=== PATIENT | female | born 1960 | race Caucasian/White ===

== ENCOUNTER 2018-06-27 14:03 | Emergency (ER) | payer BC ==
[2018-06-27 14:33] VITALS: BP 137/65
--- NOTE | 2018-06-27 15:59 | UC ---
Knee Pain HPI - HPI Summary HPI Summary: Pt c/o right knee pain that began after falling the day before ( 2018). Pt states that pain worsens with climbing stairs and prolonged standing. Pain is mostly medial at joint space. - History of Current Complaint Chief Complaint: UCLowerExtremity Stated Complaint: RIGHT KNEE INJURY Hx Obtained From: Patient ?: No Onset/Duration: Sudden Onset, Lasting Weeks, Still Present Severity Initially: Moderate Severity Currently: Moderate Pain Intensity: 7 Character: Sharp, Dull, Aching Aggravating Factor(s): Weight Bearing, Prolonged Standing, Stairs Alleviating Factor(s): Rest, Position, Cold Associated Signs And Symptoms: Positive: Swelling Able to Bear Weight: Yes - Risk Factors Septic Arthritis Risk Factor: Negative Gout Risk Factor: Age ^ 38 - Allergies/Home Medications Allergies/Adverse Reactions: Allergies Allergy/AdvReac Type Severity Reaction Status Date / Time No Known Allergies Allergy Verified 06/27/18 14:33 Home Medications: Home Medications Diclofenac Sodium EC TAB* [Voltaren EC TAB*] 25 mg PO TID PRN 06/27/18 [History Confirmed 06/27/18] Lisinopril TAB* [Prinivil TAB*] 5 mg PO DAILY 06/27/18 [History Confirmed ] PMH/Surg Hx/FS Hx/Imm Hx Previously Healthy: Yes Cardiovascular History: Hypertension - Surgical History Surgical History: None - Family History Known Family History: Positive: Cardiac Disease - Social History Occupation: Employed Full-time Lives: With Family Alcohol Use: None Substance Use Type: None Smoking Status (MU): Never Smoked Tobacco Have You Smoked in the Last Year: No Review of Systems All Other Systems Reviewed And Are Negative: Yes Constitutional: Positive: Negative Skin: Positive: Negative Eyes: Positive: Negative ENT: Positive: Negative Respiratory: Positive: Negative Cardiovascular: Positive: Negative Gastrointestinal: Positive: Negative Genitourinary: Positive: Negative Motor: Positive: Negative Neurovascular: Positive: Negative Musculoskeletal: Positive: Arthralgia - righ tknee, Myalgia Neurological: Positive: Negative Psychological: Positive: Negative Is Patient Immunocompromised?: No Physical Exam Triage Information Reviewed: Yes Appearance: Well-Appearing Vital Signs: Initial Vital Signs Temp 97.6 F 06/27/18 14:29 Pulse 77 06/27/18 14:29 Resp 16 06/27/18 14:29 BP 137/65 12/31/18 14:29 Pulse Ox 98 06/27/18 14:29 Vital Signs Reviewed: Yes Eye Exam: Normal ENT Exam: Normal Dental Exam: Normal Neck exam: Normal Respiratory: Positive: No respiratory distress Musculoskeletal Exam: Other - pain with varus and valguls test at right medial knee Musculoskeletal: Positive: Strength Intact, ROM Intact, No Edema Neurological Exam: Normal Psychological Exam: Normal Skin Exam: Normal Knee Pain Course/Dx - Differential Dx/Diagnosis Differential Diagnosis/HQI/PQRI: Bursitis, Internal Derangement Of Knee, Sprain , Strain Provider Diagnosis: Right medial knee pain Discharge - Sign-Out/Discharge Documenting (check all that apply): Patient Departure All imaging exams completed and their final reports reviewed: No Studies - Discharge Plan Condition: Stable Disposition: HOME Patient Education Materials: Knee Pain (ED), Ice Pack Application (ED) Forms: *Work Release Referrals: Srini Barfield MD [Medical Doctor] - As Soon As Possible Georgi Samuels MD [Primary Care Provider] - If Needed - Billing Disposition and Condition Condition: STABLE Disposition: Home
== END 2018-06-27 16:08 | disposition home or self-care (01) ==
LOC: UCCORT 14:03
DX: M25.561 Pain in right knee (principal); I10 Essential (primary) hypertension; W19.XXXA Unspecified fall, initial encounter; Y92.9 Unspecified place or not applicable
CPT/HCPCS: 99201; G0463